=== PATIENT | male | born 1980 | race Caucasian/White ===

== ENCOUNTER 2021-01-13 22:39 | Emergency (ER) | payer SELFPAY ==
[2021-01-13 22:40] VITALS: BP 118/68; PULSE 95; RESP 16; TEMP 36.6; O2SAT 97; BMI 26.6
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
[2021-01-14 00:16] VITALS: RESP 16
[2021-01-14] MEDS: ondansetron 2 mg/ML SDV 2 mL 4 MG IM (00:16)
[2021-01-14] MEDS: morphine 4 mg/mL SDV 1 mL IM (00:16)
[2021-01-14 00:58] VITALS: BP 110/77; PULSE 80; RESP 14; O2SAT 95
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
--- NOTE | 2021-02-06 07:44 | DCPLANNER ---
manager enterprise content management was contacted and was informed that clinic tried to contact patient multiple times, and was unable to reach patient to schedule a follow up appointment. Clinic mailed patient a letter letting patient know that clinic has tried to reach patient and to call the clinic to schedule a follow up appointment.
== END 2021-01-14 01:00 | disposition home or self-care (01) ==
PROVIDERS: Emergency Provider Physician Assistant
DX: S50.02XA Contusion of left elbow, initial encounter (principal); Y00.XXXA Assault by blunt object, initial encounter; S00.81XA Abrasion of other part of head, initial encounter
CPT/HCPCS: 70450; 70486; 72125; 73080; 96372; 99283; J2270; J2405

== ENCOUNTER 2022-09-26 16:02 | Emergency (ER) | payer SELFPAY ==
[2022-09-26] VITALS (7 sets, daily range): BP systolic 109–112; BP diastolic 74–80; PULSE 69–83; RESP 14–19; O2SAT 96–100
--- NOTE | 2022-09-26 16:05 | CTR_ITS ---
PROCEDURE INFORMATION: Exam: CT Abdomen And Pelvis With Contrast Exam date and time: 09/26/2022 5:02 PM Age: 41 years old Clinical indication: Abdominal pain; Localized; Left; Additional info: Luq pain, left flank pain, llq pain; 1 day, severe. TECHNIQUE: Imaging protocol: Computed tomography of the abdomen and pelvis with contrast. Radiation optimization: All CT scans at this facility use at least one of these dose optimization techniques: automated exposure control; mA and/or kV adjustment per patient size (includes targeted exams where dose is matched to clinical indication); or iterative reconstruction. Contrast material: OMNI 350; Contrast volume: 100 ml; Contrast route: INTRAVENOUS (IV); REPORTING DATA: Count of CT and Cardiac NM exams in prior 12 months: This patient has received 0 known CTs and 0 known cardiac nuclear medicine studies in the 12 months prior to the current study. COMPARISON: No relevant prior studies available. RADIATION DOSE METRICS: Total DLP (mGy-cm): 478.39 FINDINGS: Liver: Normal. No mass. Gallbladder and bile ducts: Normal. No calcified stones. No ductal dilation. Pancreas: Normal. No ductal dilation. Spleen: Normal. No splenomegaly. Adrenal glands: Normal. No mass. Kidneys and ureters: Normal. No hydronephrosis. Stomach and bowel: Prominent fluid in the small bowel without dilation suggestive of an enteritis. Constipation. Appendix: No evidence of appendicitis. Intraperitoneal space: Unremarkable. No free air. No significant fluid collection. Vasculature: Unremarkable. No abdominal aortic aneurysm. Lymph nodes: Unremarkable. No enlarged lymph nodes. Urinary bladder: Unremarkable as visualized. Reproductive: Unremarkable as visualized. Bones/joints: Unremarkable. No acute fracture. Soft tissues: Unremarkable. CT/CT abdomen pelvis w con* [id number] IMPRESSION: 1. Prominent fluid in the small bowel without dilation suggestive of an enteritis. 2. Constipation.
--- NOTE | 2022-09-26 16:07 | W.ED.ABDPA2 ---
HPI - Abdominal Pain General: Chief Complaint: Abdominal Pain Stated Complaint: ABD PAIN Time Seen by Provider: 09/26/22 16:05 Source: patient Mode of arrival: other (ambulatory with police from shelter) History of Present Illness: 41-year-old male presents to the emergency department with police. Patient reports yesterday started having pain in his kidneys and in his upper abdomen. Today he points to the left upper quadrant left lower quadrant as well as radiation to his left flank greater than right flank. Patient reports this morning after eating he seemed to get worse. He denies any abdominal surgeries. No history of pancreatitis or kidney stones. He reports yesterday he had a bowel movement and that look like there is maybe a little bit of blood in it. No known history of any colitis or diverticulitis. He is currently on no medications. He denies alcohol use in the last 72 hours. It is worse with palpation or movement or eating. Pain can be so severe that it causes a sweat. No fever, cough, chest pain, hematuria, dysuria, radiation to the scrotum or testicles Associated Symptoms: Denies chills, diarrhea, dysuria, fever(s) and syncope Review of Systems General: Reports: 10 or more systems reviewed and unremarkable except in HPI and below Const: Denies: fever(s), chills or body aches Eyes: Denies: change in vision ENMT: Denies: throat pain Card: Denies: chest pain, edema or syncope Resp: Denies: dyspnea or productive cough GI: Denies: diarrhea : Denies: dysuria or urinary frequency Musc: Denies: neck pain, extremity pain or extremity swelling Skin/Breast: Denies: rash or erythema Neuro: Denies: headache(s), numbness in extremities, weakness in extremities, lack of coordination or difficulty walking Physical Exam Const: COMMON NORMALS: no limitations, alert and well nourished EXAM LIMITATIONS: no altered mental status HENMT: COMMON NORMALS: normocephalic, atraumatic and external ears normal HEAD & SCALP: normocephalic and atraumatic EXTERNAL EAR: Yes external ears normal MOUTH: no muffled voice Eye: COMMON NORMALS: EOMs intact bilaterally, conjunctivae normal and no scleral icterus CONJUNCTIVA: Yes conjunctivae normal Neck/C-Spine: COMMON NORMALS: no JVD GENERAL: Yes normal visual inspection and Yes trachea midline Resp: COMMON NORMALS: normal respiratory effort and No use of accessory muscles Cardio: COMMON NORMALS: no JVD, regular rate and regular rhythm RATE: regular rate RHYTHM: regular rhythm GI: COMMON NORMALS: Soft to palpation PALPATION: Yes Soft to palpation, Yes Tenderness to palpation present (GI) Details: LLQ; Negative for RLQ or RUQ and Yes Guarding due to palpation present (GI) OTHER: +L > R CVA tenderness Extremity: COMMON NORMALS: normal to inspection Neuro: COMMON NORMALS: moves all extremities, no focal motor deficits and no sensory deficits noted SENSORIUM/ORIENTATION: Yes alert SPEECH: speech normal Psych: COMMON NORMALS: mental status grossly normal, Normal thought process present, cooperative, normal affect and speech normal SPEECH: Yes normal speech THOUGHT PROCESS: Normal thought process present Skin: COMMON NORMALS: no rashes or lesions noted, turgor normal and no jaundice GENERAL SKIN EXAM: no rashes or lesions noted and turgor normal Course Vital Signs: Vital signs: Vital Signs Pulse Rate 76 09/26/22 18:15 Respiratory Rate 19 H 09/26/22 17:52 Blood Pressure 111/74 09/26/22 18:15 Pulse Oximetry 100 09/26/22 18:15 Oxygen Delivery Me thod 09/26/22 17:30 MDM - Abdominal Pain Medical Decision Making 41-year-old male with acute onset of abdominal pain. It is constant and changes in intensity. Differential diagnosis includes kidney stone, pancreatitis, partial bowel obstruction, colitis, diverticulitis, peptic ulcer perforation, urinary tract infection with pyelonephritis, other. Patient needs laboratory work-up as well as CT scan of the abdomen and pelvis. I will provide pain medication, antiemetics, and hydration UPDATE: WBC normal CMP normal Lipase neg CT shows lots of small bowel fluid but without distention or signs of obstruction. The colon is full of feces. There is likely cramping in the small bowel with nowhere to go due to the stool in colon. This is likely leading to his discomfort. No signs of acute abdomen or emergent pathology. Patient given pain medication here; I explained that he needed to do a bowel flush out and that he'd likely start having diarrhea. I gave return precautions, including those for bowel obstruction. Lab Data 09/26/22 16:50 09/26/22 16:50 Labs/Radiology: Radiology Impressions Abdomen/Pelvis CT 09/26/22 16:05 IMPRESSION: 1. Prominent fluid in the small bowel without dilation suggestive of an enteritis. 2. Constipation. Laboratory Results WBC 9.7 10^3/uL (4.0-10.0) 09/26/22 16:50 RBC 5.19 10^6/uL (4.1-5.3) 09/26/22 16:50 Hgb 15.1 g/dL (11.7-16.6) 09/26/22 16:50 Hct 45.5 % (42.0-52.0) 09/26/22 16:50 MCV 87.7 fl (80-94) 09/26/22 16:50 MCH 29.1 pg (28.0-34.0) 09/26/22 16:50 MCHC 33.2 g/dL (30.0-36.0) 09/26/22 16:50 RDW 12.3 % (12.1-15.1) 09/26/22 16:50 Plt Count 349 10^3/cmm (130-400) 09/26/22 16:50 MPV 9.8 fL (7.4-10.4) 09/26/22 16:50 Neut % (Auto) 67.8 % 09/26/22 16:50 Lymph % (Auto) 24.7 % 09/26/22 16:50 [place] % (Auto) 5.7 % 09/26/22 16:50 Eos % (Auto) 1.0 % 09/26/22 16:50 Baso % (Auto) 0.5 % 09/26/22 16:50 Neut # (Auto) 6.54 10^3/uL (1.8-7.7) 09/26/22 16:50 Lymph # (Auto) 2.4 10^3/uL (0.8-4.8) 09/26/22 16:50 [place] # (Auto) 0.6 10^3/uL (0.2-0.9) 09/26/22 16:50 Eos # (Auto) 0.1 10^3/uL (0.0-0.8) 09/26/22 16:50 Baso # (Auto) 0.1 10^3/uL (0.0-0.1) 09/26/22 16:50 Nucleated RBC % (auto) 0 % 09/26/22 16:50 Nucleated RBCs # 0.0 /100WBC 09/26/22 16:50 Sodium 139 mmol/L (136-145) 09/26/22 16:50 Potassium 4.2 mmol/L (3.5-5.1) 09/26/22 16:50 Chloride 101 mmol/L (98-107) 09/26/22 16:50 Carbon Dioxide 28 mmol/L (22-29) 09/26/22 16:50 Anion Gap 14.2 (5-19) 09/26/22 16:50 BUN 11 mg/dL (6-20) 09/26/22 16:50 Creatinine 0.7 mg/dL (0.7-1.2) 09/26/22 16:50 GFR Calculation 124.3 mL/min (90-130) 09/26/22 16:50 Glucose 92 mg/dL (65-115) 09/26/22 16:50 Calculated Osmolality 287 mOsm/kg (285-295) 09/26/22 16:50 Calcium 9.7 mg/dL (8.5-10.5) 09/26/22 16:50 Magnesium 2.2 mg/dL (1.7-2.3) 09/26/22 16:50 Total Bilirubin 0.4 mg/dL (0.15-1.2) 09/26/22 16:50 AST 35 U/L (0-40) 09/26/22 16:50 ALT 60 U/L (0-41) H 09/26/22 16:50 Alkaline Phosphatase 89 U/L (40-130) 09/26/22 16:50 Total Protein 7.9 g/dL (6.6-8.7) 09/26/22 16:50 Albumin 4.4 g/dL (3.5-5.2) 09/26/22 16:50 Globulin 3.5 g/dL (1.3-4.6) 09/26/22 16:50 Lipase 32 U/L (13-60) 09/26/22 16:50 Urine Color Yellow (Yellow) 09/26/22 17:20 Urine Appearance Clear (CLEAR) 09/26/22 17:20 Urine pH 8 (5-7) H 09/26/22 17:20 Ur Specific [place] 1.010 (1.005-1.030) 09/26/22 17:20 Urine Protein Neg (Negative) 09/26/22 17:20 Urine Glucose (UA) Norm (Normal) 09/26/22 17:20 Urine Ketones Negative (Negative) 09/26/22 17:20 Urine Blood Neg (Negative) 09/26/22 17:20 Urine Nitrate Negative (Negative) 09/26/22 17:20 Urine Bilirubin Neg (Negative) 09/26/22 17:20 Prot Sulfosalicylic Acd Negative (Negative) 09/26/22 17:20 Urine Urobilinogen Norm mg/dL (Negative) 09/26/22 17:20 Ur Leukocyte Esterase Negative (Negative) 09/26/22 17:20 Discharge Plan Discharge Patient Disposition: Home Clinical Impression: Abdominal pain, acute, Constipation, Enteritis Condition: Stable Prescriptions: New Senna with Docusate Sodium 8.6-50 mg tablet 1 tab-cap PO BID PRN (Reason: constipation) Qty: 10 0RF Miralax 17 gram/dose powder 4 g PO TID 3 Days Qty: 36 0RF ondansetron 4 mg tablet,disintegrating 4 mg PO Q8H PRN (Reason: nausea and vomiting) 3 Days Qty: 9 0RF No Action tramadol 50 mg tablet 50 mg PO Q6H PRN (Reason: pain) Qty: 10 0RF Discharge Orders: Discharge ED (Routine); Ordered 09/26/22 Ordered By: Heriberto Ruelas Patient Instructions: Abdominal Pain (ED), Opioid Safety, Pain Management Activity Restrictions/Additional Instructions: You have constipation of your large intestine and some inflammation and cramping of the small intestine. THe small intestine enteritis could be from food poisoning or allergy, stomach flu or similar. Please return if symptoms worsening, fever, persistent vomiting, inability to pass gas or stool. Coding Level of Care Code ED [employer] Consultant for Varun Lemus
[2022-09-26] MEDS: ondansetron 2 mg/ML SDV 2 mL 4 MG IVP (16:54)
[2022-09-26] MEDS: morphine 4 mg/mL SDV 1 mL IVP ×2 (16:55→17:52)
[2022-09-26] MEDS: sodium chloride 0.9% 1,000 ML 999 ML IV (16:56)
[2022-09-26 16:57] LABS: Basophils # 0.1 10^3/uL (0.0-0.1); Basophils % 0.5 %; Eosinophils # 0.1 10^3/uL (0.0-0.8); Hematocrit 45.5 % (42.0-52.0); Hemoglobin 15.1 g/dL (11.7-16.6); Lymphocytes # 2.4 10^3/uL (0.8-4.8); Lymphocytes % 24.7 %; Mean Corpuscular HGB Conc 33.2 g/dL (30.0-36.0); Mean Corpuscular Hemoglobin 29.1 pg (28.0-34.0); Mean Corpuscular Volume 87.7 fl (80-94); Mean Platelet Volume 9.8 fL (7.4-10.4); Monocytes # 0.6 10^3/uL (0.2-0.9); Monocytes % 5.7 %; Neutrophils # 6.54 10^3/uL (1.8-7.7); Neutrophils % 67.8 %; Nucleated Red Blood Cells % 0 %; Platelet Count 349 10^3/cmm (130-400); Red Blood Count 5.19 10^6/uL (4.1-5.3); Red Cell Distribution Width 12.3 % (12.1-15.1); White Blood Count 9.7 10^3/uL (4.0-10.0)
[2022-09-26] MEDS: iohexol 350 mg/mL 500 mL Btl (per mL) IV (17:00)
[2022-09-26 17:20] LABS: Alanine Aminotransferase 60 U/L (0-41); Albumin Level 4.4 g/dL (3.5-5.2); Alkaline Phosphatase 89 U/L (40-130); Anion Gap 14.2 (5-19); Aspartate Amino Transferase 35 U/L (0-40); Blood Urea Nitrogen 11 mg/dL (6-20); Calcium 9.7 mg/dL (8.5-10.5); Carbon Dioxide 28 mmol/L (22-29); Chloride 101 mmol/L (98-107); Globulin 3.5 g/dL (1.3-4.6); Glomerular Filtration Rate 124.3 mL/min (90-130); Glucose 92 mg/dL (65-115); Lipase 32 U/L (13-60); Magnesium 2.2 mg/dL (1.7-2.3); Osmolality Calculated 287 mOsm/kg (285-295); Potassium 4.2 mmol/L (3.5-5.1); Sodium 139 mmol/L (136-145); Total Bilirubin 0.4 mg/dL (0.15-1.2); Total Protein 7.9 g/dL (6.6-8.7)
[2022-09-26 17:31] LABS: Add Urine Microscopic? NO; Charge for UA Resulting for Rev
[2022-09-26 17:35] LABS: Bilirubin Urine Neg (Negative); Blood Urine Neg (Negative); Glucose Urine UA Norm (Normal); Ketones Urine Negative (Negative); Leukocyte Esterase Urine Negative (Negative); Nitrate Urine Negative (Negative); Protein Urine Neg (Negative); Sulfosalicylic Acid Urine Negative (Negative); Urine Appearance Clear (CLEAR); Urine Color Yellow (Yellow); Urobilinogen Urine Norm (Negative); pH Urine 8 (5-7)
[2022-09-26] MEDS: dicyclomine 20 mg Tablet PO (17:52)
== END 2022-09-26 18:18 | disposition home or self-care (01) ==
PROVIDERS: Emergency Provider Emergency Medicine
DX: K52.9 Noninfective gastroenteritis and colitis, unspecified (principal); K59.00 Constipation, unspecified
CPT/HCPCS: 74177; 80053; 81003; 83690; 83735; 85025; 96361; 96374; 96375; 96376; 99285; J2270; J2405; J7030; Q9967